=== PATIENT | female | born 1980 ===

== ENCOUNTER 2020-09-04 06:55 | Day surgery (SDC) | payer OTHER ==
[2020-09-04] MEDS ORDERED: NAPR500T14 PO (10:49)
[2020-09-04] MEDS ORDERED: Tylenol #3 PO (10:49)
[2020-09-04] MEDS ORDERED: MORGIDOX100 MG PO (10:49)
== END 2020-09-04 13:00 | disposition home or self-care (01) ==
LOC: CIR.AMB 06:55
PROVIDERS: ATTEND Obstetrics & Gynecology
DX: D27.1 Benign neoplasm of left ovary (principal); D25.0 Submucous leiomyoma of uterus; N84.0 Polyp of corpus uteri; Z20.822 Contact with and (suspected) exposure to COVID-19

== ENCOUNTER 2024-10-18 05:48 | Day surgery (SDC) | payer OTHER ==
[2024-10-12 12:15] VITALS: BP 138/85
[~2024-10-18] VITALS: Ht 157.5 cm; Wt 77.1 kg
[~2024-10-18 05:48] MED LIST: MORGIDOX100 MG PO; NAPR500T14 PO; Tylenol #3 PO
[2024-10-18] MEDS ORDERED: CEFOXITIN SODIUM 2,000 MG VIAL IV ONE (07:28)
[2024-10-18] MEDS ORDERED: POVIDONE-IODINE 118 ML BOTT TOP ONE (11:06)
[2024-10-18] MEDS ORDERED: THROMBIN,HU/FIBRINOGEN/CALCIUM 10 ML SYRINGE TOP ONE (11:53)
[2024-10-18] MEDS ORDERED: VISTASEAL DUAL APPICATOR 1 EACH APPL TOP ONE (11:56)
[2024-10-18] MEDS ORDERED: PROMETHAZINE HCL 50 MG/ML AMPUL IM ONE (12:30)
[2024-10-18] MEDS ORDERED: MORPHINE SULFATE 4 MG/ML VIAL IV PRN (12:30)
[2024-10-18] MEDS ORDERED: NAPR500T14 PO (12:32)
[2024-10-18] MEDS ORDERED: Tylenol #3 PO (12:32)
[2024-10-18] MEDS ORDERED: KETOROLAC TROMETHAMINE 30 MG VIAL ONE (14:12)
== END 2024-10-18 15:10 | disposition home or self-care (01) ==
LOC: CIR.AMB 05:48
PROVIDERS: ATTEND Obstetrics & Gynecology
DX: D27.1 Benign neoplasm of left ovary (principal); D28.2 Benign neoplasm of uterine tubes and ligaments; N80.202 Endometriosis of left fallopian tube, unspecified depth; N80.102 Endometriosis of left ovary, unspecified depth